=== PATIENT | female | born 1990 | race Caucasian/White ===

== ENCOUNTER 2018-09-02 14:02 | Emergency (ER) | payer MEDICAID ==
[~2018-09-02] VITALS: Ht 167.6 cm; Wt 71.7 kg
[2018-09-02 14:08] VITALS: Ht 167.6 cm; Wt 71.7 kg
[2018-09-02 15:21] VITALS: BP 107/65
== END 2018-09-02 15:39 | disposition home or self-care (01) ==
LOC: ED 14:02
DX: S16.1XXA Strain of muscle, fascia and tendon at neck level, initial encounter (principal); M25.512 Pain in left shoulder; M54.5 Low back pain; M54.6 Pain in thoracic spine; V43.52XA Car driver injured in collision with other type car in traffic accident, initial encounter; Y93.I9 Activity, other involving external motion; Y92.488 Other paved roadways as the place of occurrence of the external cause; Y99.0 Civilian activity done for income or pay

== ENCOUNTER 2019-05-25 16:15 | Emergency (ER) | payer OTHER ==
[~2019-05-25] VITALS: Ht 167.6 cm; Wt 72.6 kg
[2019-05-25 16:31] VITALS: BP 132/65
[2019-05-25 17:14] LABS: BASOPHIL % 0.4 % (0-2); PLATELET COUNT 367 x10^3mcL (130-400); RED CELL DISTRIBUTION WIDTH 13.2 % (11.5-14.5)
[2019-05-25 17:33] LABS: MONOCYTE 6 % (0-7); SEGMENTED NEUTROPHILS 70 % (37-75)
[2019-05-25 17:34] LABS: rbc morphology (normal/abnorm) NORMAL (NORMAL)
== END 2019-05-25 18:17 | disposition home or self-care (01) ==
LOC: ED 16:15
PROVIDERS: Emergency Medicine
DX: J18.9 Pneumonia, unspecified organism (principal); G43.909 Migraine, unspecified, not intractable, without status migrainosus
CPT/HCPCS: 36415; 87804; J0696; J1885; J2001; J8597; Q0092; U0002

== ENCOUNTER 2020-01-15 13:41 | Emergency (ER) | payer OTHER ==
[~2020-01-15] VITALS: Ht 167.6 cm; Wt 68.5 kg
[2020-01-15 13:52] VITALS: BP 122/75; Ht 167.6 cm; Wt 68.5 kg
== END 2020-01-15 14:44 | disposition home or self-care (01) ==
LOC: ED 13:41
DX: R21 Rash and other nonspecific skin eruption (principal); M54.9 Dorsalgia, unspecified; J45.909 Unspecified asthma, uncomplicated
CPT/HCPCS: A4570